=== PATIENT | male | born 1960 | race Hispanic/Latino ===

== ENCOUNTER 2021-02-04 15:04 | Emergency (ER) | payer OTHER, SELFPAY ==
--- NOTE | ~2021-02-04 | CT_ITS ---
EXAMINATION: CT abdomen pelvis w con DATE: 02/04/2021 16:48 INDICATION: Left lower quadrant abdominal pain TECHNIQUE: Computed tomography (CT) of the abdomen and pelvis was performed with 100 cc Omnipaque 350 intravenous contrast. Automated exposure control and iterative reconstruction technique were employe d. Exam dose: 226.26 mGy-cm total exam DLP. COMPARISON: None. FINDINGS: 4.5 mm left lower lobe peripheral pulmonary nodule (series 4 image 24). The included lung b ases are clear of infiltrate or consolidation. Normal heart size. No pericardial or pleural effusion. Hepatic steatosis. The liver, gallbladder, bile ducts, spleen, pancreas, and adrenal glands and kidneys are otherwise un remarkable. There is a 6 mm probable right renal cyst. Normal caliber of the abdominal aorta. No intraperitoneal or retroperitoneal or pelvic mass lesion or adenopathy or ascites. Mild bilateral fat containing inguinal hernias. Bilateral hydroceles. Moderate prostate enlargement. There is moderate thickening of the urinary bladder wall. Normal appendix. There is a very prominent amount of fecal material within the colon. No bowel obstruction, bowel wall thickening, pneumatosis or intraperitoneal free air is detected. There are numerous fluid containing small bowel segments with scattered multiple small bowel air-flui d levels. There is no abnormal dilatation or transition zone. The findings may represent adynamic ile us or enteritis. Included skeletal structures are unremarkable. IMPRESSION: Nonspecific fluid containing nondilated small bowel with air-fluid levels, which may be due to mild adynamic ileus versus enteritis. No bowel obstruction Prominent amount of fecal material in the colon Hepatic steatosis Reviewed, dictated and finalized at [facility] Reviewed, dictated and finalized at [facility] IMPRESSION: Nonspecific fluid containing nondilated small bowel with air-fluid levels, which may be due to mild adynamic ileus versus enteritis. No bowel obs truction Prominent amount of fecal material in the colon Hepatic steatosis
[2021-02-04 15:15] VITALS: BP 113/59; PULSE 58; RESP 18; TEMP 36.2; O2SAT 98
[2021-02-04 15:29] LABS: Basophils Percent Auto 0.6 % (0.2-1.2); Eosinophils Percent Auto 0.8 % (0-4.4); Hematocrit 36.6 % (42.0-52.0); Immature Granulocyte Absolute 0.04 K/mm3 (0.00-0.031); Immature Granulocyte Percent A 0.8 % (0-0.5); Lymphocytes Absolute Auto 0.58 K/mm3 (0.9-3.2); Lymphocytes Percent Auto 11.7 % (18.3-44.2); Mean Corpuscular HGB Conc 32.8 g/dl (32-36); Mean Corpuscular Hemoglobin 28.5 pg (26-34); Mean Corpuscular Volume 86.9 fl (80-100); Mean Platelet Volume 9.6 fl (7.4-10.4); Monocytes Absolute Auto 0.5 K/mm3 (0.1-0.6); Monocytes Percent Auto 9.9 % (2.6-8.5); Neutrophils Absolute Auto 3.8 K/mm3 (1.3-6.7); Neutrophils Percent Auto 76.2 % (45.5-73.1); Platelet Count Result 316 k/mm3 (150-375); Red Blood Count 4.21 M/mm3 (4.6-6.20); Red Cell Distribution Width 13.8 % (11.5-14.5)
[2021-02-04 15:37] LABS: Alanine Aminotransferase 23 U/L (4-50); Albumin Level 4.2 g/dL (3.5-5.1); Alkaline Phosphatase 63 U/L (38-126); Anion Gap 12 mmol/L (8-16); Aspartate Amino Transferase 32 U/L (17-59); Bilirubin,Total 0.3 mg/dL (0.2-1.3); Blood Urea Nitrogen 27 mg/dL (9-20); Carbon Dioxide 23 mmol/L (22-30); Chloride 106 mmol/L (98-107); Estimated Glomerular Filt Rate 57; Glucose 106 mg/dL (75-110); Lipase 231 U/L (23-300); Potassium 4.7 mmol/L (3.4-5.0); Sodium 141 mmol/L (137-145)
--- NOTE | 2021-02-04 16:19 | ED.ABDPAIN ---
HPI - Abdominal Pain General Chief Complaint: Abdominal Pain Stated Complaint: llq pain Time Seen by Provider: 02/04/21 15:56 Source: patient Mode of arrival: ambulatory Limitations: language barrier (used video park interpreter) History of Present Illness HPI narrative: This is a 60 year old male who presents for evaluation of left mid abdominal pain. He developed pain 1 week ago. His pain is constant and it is worse when he works. 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 He has been taking an over the counter medication for his pain. He denies cough, fever, or sob. His pain does worsen sometimes with deep breathing. He denies nausea, vomiting or urinary symptoms. Related Data Allergies Allergy/AdvReac Type Severity Reaction Status Date / Time No Known Allergies Allergy Verified 02/04/21 15:19 Review of Systems Review of Systems: All systems reviewed & are unremarkable except as noted in HPI and below PMFSH Past Medical History Medical History (Updated 02/04/21 @ 18:43 by Samia Kiser MD) Patient denies medical problems Surgical History Surgical History (Updated 02/04/21 @ 16:25 by Samia Kiser MD) No pertinent past surgical history Social History Social History (Updated 02/04/21 @ 16:25 by Samia Kiser MD) Smoking status: Never smoker Alcohol intake: current Alcohol use details: occasional beer Gender identity (if verbalized by the patient): Male Exam Const: General: no acute distress and alert Orientation/consciousness: patient oriented x3 Resp: Effort & Inspection: normal respiratory effort and no retractions Auscultation: clear to auscultation bilaterally Cardio: Rate: regular rate Rhythm: regular rhythm Heart sounds: no murmurs GI: GI Palp: Yes Soft to palpation, Yes Tenderness to palpation present (GI) (focal left mid abdominal pain) and No Guarding due to palpation present (GI) Auscultation: normal bowel sounds Back/Spine/Pelvis: Back: no CVA tenderness Skin: General skin exam: normal color Rashes: no rashes Neuro: General: patient oriented x3, moves all extremities and CN's II-XI intact bilaterally Extrem: General: normal to inspection Psych: Mental Status: mental status grossly normal Affect: normal affect Course Reevaluation(s) Reevaluation #1: Patient's labs are unremarkable other than some anemia. He denies melena. His pain may be muscular. He will be referrred for follow up of his anemia and pain. He has not associated nausea or vomiting so this does not appear to be ileus or obstruction Date: 02/04/21 Time: 18:38 Vital Signs Vital signs: Vital Signs Temperature 97.2 F L 02/04/21 15:15 Pulse Rate 58 L 02/04/21 15:15 Respiratory Rate 18 02/04/21 15:15 Blood Pressure 113/59 L 02/04/21 15:15 Pulse Oximetry 98 02/04/21 15:15 Temperature 97.2 F L 02/04/21 15:15 Pulse Rate 60 02/04/21 19:14 Respiratory Rate 20 02/04/21 19:14 Blood Pressure 130/88 02/04/21 19:14 Pulse Oximetry 100 02/04/21 19:14 MDM - Abdominal Pain Lab Data Attestation: I reviewed the patient's lab results. Result diagrams: 02/04/21 15:20 02/04/21 15:20 Labs: Lab Results 02/04/21 02/04/21 02/04/21 Range/Units 15:20 15:20 16:55 WBC 5.0 (4.5-10.0) K/mm3 RBC 4.21 L (4.6-6.20) M/mm3 Hgb 12.0 L (14.0-18.0) g/dL Hct 36.6 L (42.0-52.0) % MCV 86.9 (80-100) fl MCH 28.5 (26-34) pg MCHC 32.8 (32-36) g/dl RDW 13.8 (11.5-14.5) % Plt Count 316 (150-375) k/mm3 MPV 9.6 (7.4-10.4) fl Immature Gran % (Auto) 0.8 H (0-0.5) % Neut % (Auto) 76.2 H (45.5-73.1) % Lymph % (Auto) 11.7 L (18.3-44.2) % [place] % (Auto) 9.9 H (2.6-8.5) % Eos % (Auto) 0.8 (0-4.4) % Baso % (Auto) 0.6 (0.2-1.2) % Lymph # (Auto) 0.58 L (0.9-3.2) K/mm3 [place] # (Auto) 0.5 (0.1-0.6) K/mm3 Eos # (Auto) 0.0 (0-0.3) K/mm3 B
[2021-02-04 17:04] LABS: Add Urine Microscopic? YES; Appearance Urine Clear (Clear); Bilirubin Urine Negative (Negative); Blood Urine Negative (Negative); Color Urine Yellow (Yellow); Glucose Urine UA 3+ mg/dL (Negative); Ketones Urine Negative (Negative); Leukocyte Esterase Ur Negative LEU/UL (Negative); Nitrate Urine Negative (Negative); Protein Urine 1+ mg/dL (Negative); RBC Urine 0-2 /hpf (0-2); Specific Grav Ur 1.026 (1.001-1.035); Squamous Epithelial Cell Urine Rare /hpf (Few); Urobilinogen Urine Negative mg/dL (<2.0); WBC Urine 0-3 /hpf
[2021-02-04] MEDS: SODIUM CHLORIDE 0.9% IV 1,000 ML 999 ML IV CONT (18:09)
[2021-02-04 19:14] VITALS: BP 130/88; PULSE 60; RESP 20; O2SAT 100
== END 2021-02-04 19:15 | disposition home or self-care (01) ==
PROVIDERS: Emergency Medicine; Emergency Provider General Practice; PCP Registered Nurse
DX: R10.9 Unspecified abdominal pain (principal); D64.9 Anemia, unspecified; N40.0 Benign prostatic hyperplasia without lower urinary tract symptoms; K76.0 Fatty (change of) liver, not elsewhere classified
CPT/HCPCS: 36415; 74177; 80053; 81001; 83690; 85025; 96361; 96365; 99284; J0131; J7030; Q9967